=== PATIENT | male | born 1955 | race Caucasian/White ===

== ENCOUNTER 2019-09-18 16:57 | Emergency (ER) | payer MEDICARE, BC ==
[2019-09-18] MEDS: Ketorolac 30 MG/ML SDV IVPUSH ONE (17:24)
[2019-09-18] MEDS: Sodium Chloride 0.9% 1,000 ML IV ONE (17:35)
--- NOTE | 2019-09-18 17:35 | EDM.PDOC ---
ED HPI GENERAL MEDICAL PROBLEM - General Chief Complaint: Gastrointestinal Problem Stated Complaint: KIDNEY STONE?? Time Seen by Provider: 09/18/19 17:27 Source of Information: Reports: Patient History Limitations: Reports: No Limitations - History of Present Illness INITIAL COMMENTS - FREE TEXT/NARRATIVE: Patient is a 64-year-old gentleman who presents to the emergency department this evening via private vehicle and has a complaint of left lower quadrant abdominal pain. Patient states he had one episode yesterday morning that resolved after a bowel movement. Pain was described as sharp, in lower abdomen and had no radiation. Patient had similar symptoms again this morning at 10 a.m. and has had intermittent pain throughout the day. Patient does feel nauseous, however, has not vomited. Patient has a history of renal calculi approximately 4-5 years ago. Patient does have history of parathyroid issues, thus concerning for renal calculi. Patient denies fever, dysuria, hematuria, vomiting, chest pain, shortness of breath, bowel changes, blood in stool, trauma , or testicular pain. Onset: Sudden Onset Date: 09/17/19 Duration: Day(s): Location: Reports: Abdomen Quality: Reports: Sharp Severity: Mild Improves with: Reports: Other (Spontaneously) Worsens with: Reports: None Context: Denies: Trauma Associated Symptoms: Reports: Nausea/Vomiting. Denies: Fever/Chills LL abdomen Pain Score (Numeric/FACES): 8 - Related Data Allergies Allergy/AdvReac Type Severity Reaction Status Date / Time No Known Drug Allergies Allergy Unknown none Verified 09/18/19 17:05 Home Meds: Home Meds Cephalexin [Keflex] 500 mg PO TID #15 capsule 09/18/19 [Rx] Losartan [Cozaar] 25 mg PO DAILY 09/18/19 [History] Pantoprazole Sodium [Protonix] 40 mg PO DAILY 09/18/19 [History] Past Medical History - Past Health History Medical/Surgical History: Denies Medical/Surgical History Social & Family History - Family History Family Medical History: Noncontributory - Living Situation & Occupation Living situation: Reports: Occupation: Employed ED ROS GENERAL - Review of Systems Review Of Systems: Comprehensive ROS is negative, except as noted in HPI. Constitutional: Reports: No Symptoms HEENT: Reports: No Symptoms Respiratory: Reports: No Symptoms Cardiovascular: Reports: No Symptoms Endocrine: Reports: No Symptoms GI/Abdominal: Reports: Abdominal Pain, Nausea. Denies: Black Stool, Bloody Stool, Vomiting : Reports: Dysuria. Denies: Flank Pain, Hematuria Musculoskeletal: Reports: No Symptoms Skin: Reports: No Symptoms Neurological: Reports: No Symptoms Psychiatric: Reports: No Symptoms Hematologic/Lymphatic: Reports: No Symptoms Immunologic: Reports: No Symptoms ED EXAM, GI/ABD - Physical Exam Exam: See Below Exam Limited By: No Limitations General Appearance: Alert, WD/WN, No Apparent Distress Throat/Mouth: Normal Inspection, Normal Oropharynx, No Airway Compromise Head: Atraumatic, Normocephalic Neck: Normal Inspection Respiratory/Chest: No Respiratory Distress, Lungs Clear, Normal Breath Sounds, No Accessory Muscle Use, Chest Non-Tender Cardiovascular: Regular Rate, Rhythm, No Murmur GI/Abdominal Exam: Normal Bowel Sounds, Soft, No Organomegaly, No Distention, No Abnormal Bruit, No Mass, Tender (Mildly in left lower quadrant) (Male) Exam: No Hernia, Normal Inspection Back Exam: Normal Inspection. No: CVA Tenderness (L), CVA Tenderness (R) Extremities: Normal Inspection Neurological: Alert, Oriented, Normal Cognition Psychiatric: Normal Affect, Normal Mood Skin Exam: Warm, Dry, Intact, Normal Color, No Rash Lymphatic: No Adenopathy Course - Vital Signs Last Recorded V/S: Last Vital Signs Temp 97.2 F 09/18/19 17:00 Pulse 55 L 09/18/19 17:00 Resp 18 09/18/19 17:00 BP 147/69 H 09/18/19 17:00 Pulse Ox 97 09/18/19 17:00 - Orders/Labs/Meds Labs: Laboratory Tests 09/18/19 09/18/19 09/18/19 Range/Units 17:11 17:20 17:20 WBC 8.62 (5.00-10.00) 10^3/uL RBC 5.14 (4.50-6.00) 10^6/uL Hgb 14.8 D (13.0-17.0) g/dL Hct 43.2 (40.0-52.0) % MCV 84.0 (82.0-92.0) fL MCH 28.8 (27.0-31.0) pg MCHC 34.3 (32.0-36.0) g/dL RDW 12.9 (11.5-14.5) % Plt Count 201 (150-400) 10^3/uL MPV 10.1 (7.4-10.4) fL Immature Gran % (Auto) 0.1 (0.0-5.0) % Neut % (Auto) 81.2 H (50.0-70.0) % Lymph % (Auto) 10.4 L (20.0-40.0) % [place] % (Auto) 7.7 (2.0-8.0) % Eos % (Auto) 0.3 L (1.0-3.0) % Baso % (Auto) 0.3 (0.0-1.0) % Immature Gran # (Auto) 0.01 (0.00-0.50) 10^3/uL Neut # (Auto) 6.99 (2.50-7.00) 10^3/uL Lymph # (Auto) 0.90 L (1.00-4.00) 10^3/uL [place] # (Auto) 0.66 (0.10-0.80) 10^3/uL Eos # (Auto) 0.03 L (0.10-0.30) 10^3/uL Baso # (Auto) 0.03 (0.00-0.10) 10^3/uL Sodium 143 (136-145) mmol/L Potassium 4.2 (3.3-5.3) mmol/L Chloride 106 (98-115) mmol/L Carbon Dioxide 24.3 (21.0-32.0) mmol/L Anion Gap 16.9 H (5-15) mmol/L BUN 24 (6-25) mg/dL Creatinine 1.43 H (0.51-1.17) mg/dL Est Cr Clr Drug Dosing 54.85 mL/min Estimated GFR (MDRD) 50 mL/min Glucose 113 H (75 - 99) mg/dL Calcium 8.9 (8.7-10.3) mg/dL Total Bilirubin 0.5 (0.2-1.0) mg/dL AST 38 H (15-37) U/L ALT 37 (12-78) U/L Alkaline Phosphatase 98 (46-116) IU/L Total Protein 6.8 (6.4-8.2) g/dL Albumin 3.96 (3.00-4.80) g/dL Specimen Type Urinvoid Urine Color Yellow (YELLOW) Urine Appearance Slightly cloudy H (CLEAR) Urine pH 5.5 (5.0-9.0) Ur Specific [place] >= 1.030 (1.005-1.030) Urine Protein 30 H (NEGATIVE) mg/dL Urine Glucose (UA) Negative (NEGATIVE) mg/dL Urine Ketones Negative (NEGATIVE) mg/dL Urine Occult Blood Negative (NEGATIVE) Urine Nitrite Negative (NEGATIVE) Urine Bilirubin Small H (NEGATIVE) Urine Urobilinogen 0.2 (0.2-1.0) E.U./dL Ur Leukocyte Esterase Negative (NEGATIVE) Urine RBC 0-5 (0-5) /HPF Urine WBC 5-10 H (0-5) /HPF Ur Epithelial Cells Rare /LPF Urine Bacteria Rare (NONE TO FEW) /HPF Hyaline Casts Few H (NEGATIVE) /LPF Urine Mucus Many H (NEGATIVE) /LPF Meds: Medications Discontinued Medications Generic Name Dose Route Start Last Admin Trade Name Matthew PRN Reason Stop Dose Admin Ceftriaxone Sodium 1 gm 09/18/19 17:57 09/18/19 18:13 Rocephin IVPUSH 09/18/19 17:58 1 gm ONETIME ONE Administration Sodium Chloride 1,000 mls @ 999 mls/hr 09/18/19 17:11 09/18/19 17:35 Normal Saline IV 09/18/19 18:11 999 mls/hr .BOLUS ONE Administration Ketorolac Tromethamine 30 mg 09/18/19 17:11 09/18/19 17:24 Toradol IVPUSH 09/18/19 17:12 30 mg ONETIME ONE Administration Ondansetron HCl 12 mg 09/18/19 18:09 Zofran Odt PO 09/18/19 18:10 ONETIME ONE Oxycodone/Acetaminophen 2 tab 09/18/19 18:09 Percocet 325-5 Mg PO 09/18/19 18:10 ONETIME ONE - Radiology Interpretation Free Text/Narrative:: CT abdomen and pelvis without contrast shows 2-5 mm calculi in the distal left ureter, mild left hydronephrosis. - Re-Assessments/Exams Free Text/Narrative Re-Assessment/Exam: 09/18/19 18:12 Patient afebrile, vital signs stable, pain relieved with Toradol. 5-10 WBCs in urine. Patient will be covered for possible underlying UTI. Urinary strainer given to patient. Patient will contact clinic tomorrow for appointment with Dr. Gonzalez and urology follow-up. Departure - Departure Time of Disposition: 18:14 Disposition: Home, Self-Care 01 Condition: Good Clinical Impression: Renal and ureteric calculus, Hydronephrosis concurrent with and due to calculi of kidney and ureter - Discharge Information Instructions: Dietary Guidelines to Help Prevent Kidney Stones, Kidney Stones, [id number], Hydronephrosis Referrals: Alana Falcon MD [Primary Care Provider] - Forms: ED Department Discharge Additional Instructions: Contact [facility] tomorrow for appointment with Dr. Gonzalez in next 2 days. Take medication as directed. Return to the emergency department sooner if symptoms continue or worsen. Sepsis Event Note - Focused Exam Vital Signs: Vital Signs Temp Pulse Resp BP Pulse Ox 09/18/19 17:00 97.2 F 55 L 18 147/69 H 97 Date Exam was Performed: 09/18/19 Time Exam was Performed: 18:13 - Assessment/Plan Assessment:: Renal calculi Plan: Follow-up with Dr. Gonzalez
[2019-09-18 17:39] VITALS: BP 147/69; PULSE 55
[2019-09-18 17:51] LABS: ANION GAP 16.9 mmol/L (5-15)
--- NOTE | 2019-09-18 17:54 | CT ---
[id number] CT/CT Abdomen Pelvis WO IV EXAM: ABDOMEN AND PELVIS CT WITHOUT CONTRAST INDICATION: LEFT LOWER ABDOMINAL PAIN. COMPARISON: June 27, 2018. DISCUSSION: There are 2 calculi in the distal left ureter measuring 5 x 3 and 4 x 3 mm that contribute to [id number] left hydronephrosis. Scattered small nonobstructing calculi within both kidneys measuring up to 4 mm in diameter. No right ureteral calculus or collecting system dilation is identified. Scattered colonic diverticula without evidence of diverticulitis. Duodenal diverticulum. Small fat-containing bilateral inguinal hernias. Unenhanced images of the liver, spleen, pancreas, adrenal glands, small bowel and the appendix are unremarkable. No adenopathy, free air free fluid. The osseous structures are unremarkable. IMPRESSION: 1. 5 x 3 and 5 x 4 mm calculi in the distal left ureter contribute to [id number] left hydroureteronephrosis. There are multiple other small nonobstructing bilateral intrarenal calculi. Kamran Villela MD 09/18/19 0963 Thank you for allowing us to participate in the care of your patient.
[2019-09-18] MEDS: cefTRIAXone 1 GM Vial IVPUSH ONE (18:13)
[2019-09-18] MEDS: Ondansetron 4 MG Tab.DIS PO ONE (18:36)
[2019-09-18] MEDS: Acetaminophen/oxyCODONE 325-5 MG Tab PO ONE (18:38)
== END 2019-09-18 18:45 | disposition home or self-care (01) ==
LOC: KA.ED 16:57
DX: N13.2 Hydronephrosis with renal and ureteral calculous obstruction (principal)
CPT/HCPCS: 36415; 74176; 80053; 81001; 85025; 96361; 96374; 96375; 99284; A9270; J0696; J1885; J7030